=== PATIENT | male | born 1985 | race Caucasian/White ===

== ENCOUNTER 2017-09-18 20:00 | Emergency (ER) | payer BC ==
[2017-09-18 20:07] VITALS: BP 140/72; PULSE 77; RESP 20; TEMP 99.3
--- NOTE | 2017-09-18 20:22 | ED ---
Fall HPI - General Chief Complaint: Fall Stated Complaint: dislocated shoulder Time Seen by Provider: 09/18/17 20:13 Source: patient Mode of arrival: ambulatory - History of Present Illness Initial Comments: Pravin is a 31-year-old male with no significant past medical history presents to the ED from an urgent care for evaluation of possible right shoulder dislocation. Patient reports around 5 PM tonight he was cleaning gutters at his house, he was standing on a ladder when he lost his footing and fell onto his right shoulder. Patient states he felt immediate pain in his right shoulder , he drank 2 or 3 beers due to the pain and then went to an urgent care for evaluation. At the urgent care x-rays were obtained and he was advised he may have a shoulder dislocation and was told to come to the emergency department for repeat evaluation. Upon arrival patient does complain of pain in his right shoulder. He reports that he has full range of motion of the shoulder but that it is tender with full range of motion. He denies any numbness or tingling in the right arm. He denies any head trauma or loss of consciousness, denies any pain in his neck, numbness and tingling in the upper or lower extremities or loss of sensation in the upper or lower extremities. Patient endorses that he did not have any alcohol in his system prior to falling. - Related Data Home Medications Medication Instructions Recorded Confirmed Multivitamins, Thera [Multivitamin 1 tab PO DAILY 09/18/17 09/18/17 (formulary)] [place]-3 Fatty Acids/Fish Oil [Fish 1 cap PO DAILY 09/18/17 09/18/17 Oil 1,000 mg Softgel] Allergies Allergy/AdvReac Type Severity Reaction Status Date / Time No Known Allergies Allergy Verified 09/18/17 20:10 Review of Systems ROS Statement: Those systems with pertinent positive or pertinent negative responses have been documented in the HPI. ROS Other: All systems not noted in ROS Statement are negative. Constitutional: Denies: fever Eyes: Denies: vision change ENT: Denies: epistaxis Respiratory: Denies: cough, dyspnea Cardiovascular: Denies: chest pain, palpitations Endocrine: Denies: fatigue Gastrointestinal: Denies: abdominal pain, nausea, vomiting Musculoskeletal: Reports: joint swelling, arthralgia. Denies: back pain Skin: Denies: rash, lesions Neurological: Denies: headache, weakness Psychiatric: Denies: anxiety, depression Hematological/Lymphatic: Denies: easy bleeding, easy bruising Past Medical History Past Medical History: No Reported History History of Any Multi-Drug Resistant Organisms: None Reported Past Surgical History: No Surgical Hx Reported Past Psychological History: No Psychological Hx Reported Smoking Status: Never smoker Past Alcohol Use History: Occasional Past Drug Use History: None Reported General Exam Limitations: no limitations General appearance: alert, in no apparent distress, other Head exam: Present: atraumatic, normocephalic Eye exam: Present: normal appearance, PERRL ENT exam: Present: normal exam Neck exam: Present: normal inspection, full ROM. Absent: tenderness, meningismus (ll,), lymphadenopathy, thyromegaly Respiratory exam: Present: normal lung sounds bilaterally. Absent: respiratory distress Cardiovascular Exam: Present: regular rate, normal rhythm GI/Abdominal exam: Present: soft. Absent: distended Rectal exam: Present: deferred Extremities exam: Present: full ROM, tenderness, normal capillary refill, joint swelling. Absent: pedal edema Right Shoulder Exam: Present: full ROM, tenderness, swelling, tenderness over AC joint. Absent: abrasion, laceration, crepitus Upper Arm exam: Present: full ROM. Absent: swelling, abrasion, deformity Elbow exam: Present: full ROM. Absent: swelling, ecchymosis, crepitus Forearm Wrist exam: Present: full ROM. Absent: swelling, ecchymosis, deformity , crepitus, dislocation, tenderness over anatomical snuff box, pain with axial thumb loading Hand Wrist exam: Present: full ROM. Absent: tenderness, swelling, abrasion Neuro motor exam: Present: wrist extension intact, thumb opposition intact, thumb IP flexion intact, thumb adduction intact, fingers 2-5 abduction intact Vascular: Present: normal capillary refill. Absent: vascular compromise, pulse deficit radial art, pulse deficit ulnar art, pulse deficit brachial art Back exam: Present: normal inspection. Absent: CVA tenderness (R), CVA tenderness (L), muscle spasm, paraspinal tenderness, vertebral tenderness Neurological exam: Present: alert, oriented X3, CN II-XII intact Psychiatric exam: Present: normal affect, normal mood Skin exam: Present: warm, dry, intact Course Vital Signs 09/18/17 20:03 Temperature 99.3 F Pulse Rate 77 Respiratory 20 Rate Blood Pressure 140/72 O2 Sat by Pulse 99 Oximetry Medical Decision Making - Medical Decision Making Patient was seen and evaluated, history was obtained from the patient and review of medical record from outside medical facility X-rays were uploaded into our system for viewing Patient with full ROM of RUE with minimal pain Xrays were reviewed, consistent with AC separation, no dislocation noted results were discussed with patient who expresses relief, I offered the patient a sling for comfort, however patient stated he would prefer to by a sling over the counter because he does not want to be billed by the ER. Patient expresses some concern about the ER bill and upset that he was sent here from the outside facility. I advised the patient that he needs to wear the sling and follow up with orthopedic surgery for re-evaluation of the injury in the next 1-2 weeks. I advised the patient to avoid heavy lifting and to treat pain with PO Tylenol/ Motrin. Patient expressed understanding of plan. All questions pertaining to care were answered to the best of my ability and the patient was discharged home in good condition. Disposition Clinical Impression: AC separation Disposition: HOME SELF-CARE Condition: Good Instructions: Acromioclavicular Separation (ED) Referrals: None,Stated [Primary Care Provider] - 1-2 days Raymon Meyer MD [STAFF PHYSICIAN] - 1-2 days Time of Disposition: 21:12
== END 2017-09-18 21:26 | disposition home or self-care (01) ==
LOC: EC 20:00
DX: S43.101D Unspecified dislocation of right acromioclavicular joint, subsequent encounter (principal); Z79.899 Other long term (current) drug therapy; W11.XXXD Fall on and from ladder, subsequent encounter
CPT/HCPCS: 99283